=== PATIENT | male | born 1995 | race Caucasian/White ===

== ENCOUNTER 2020-01-18 00:34 | Emergency (ER) | payer OTHER ==
[~2020-01-18] VITALS: Ht 175.3 cm; Wt 72.9 kg
[2020-01-18 00:40] VITALS: BP 147/88
[2020-01-18] MEDS ORDERED: cefTRIAXone SODIUM 1 GM VIAL ONE (00:59)
--- NOTE | 2020-01-18 00:59 | PHYS DOC ---
General Adult HPI: HPI: "I was correcting my dog Josue.. becaise he was trying to eat the left over... smoked steak.....I ginna hit him on the nose.. and I bent down to talk to him..and he snapped.. at my face.. and caught my lower lip..." Patient is a 24 year old male who presents with above hx and complaints of dog bite to face. Pt has had the dog for 2 months. Dog is a [employer], originally transferred from [facility] to [facility]. Dog was adopted from the [facility]. No history on the animal. Dog is up-to-date with vaccinations. Primarily a inside dog. Has not exhibited any abnormal aggressive behaviors. Dog was somewhat agitated by multiple visitors in the home tonight. Patient has bite odell on left lower cheek and a large 4 cm through and through laceration to the lower left lip with surrounding ecchymosis. Does have teeth abrasion to Lt side of face. Patient has obviously missing approximately 2 cm of tissue to lower lip. Wound is gaping open. Discussed risks of closure with patient extensively and risk of increased infection. Elected to close laceration due to the marked deformity to face in spite of infection risk. Patient is normally healthy. No recent travel outside [facility]. No history of immunosuppression. [place] police dept[employer] notified. Review of Systems: Review of Systems: Constitutional: Denies fever or chills Eyes: Denies change in visual acuity HENT: Denies nasal congestion or sore throat. Dog bite to face Respiratory: Denies cough or shortness of breath Cardiovascular: Denies chest pain or edema GI: Denies abdominal pain, nausea, vomiting, bloody stools or diarrhea : Denies dysuria Musculoskeletal: Denies back pain or joint pain Integument: Denies rash Neurologic: Denies headache, focal weakness or sensory changes Endocrine: Denies polyuria or polydipsia Lymphatic: Denies swollen glands Psychiatric: Denies depression or anxiety Heart Score: Risk Factors: Risk Factors: DM, Current or recent (<one month) smoker, HTN, HLP, family history of CAD, obesity. Risk Scores: Score 0 - 3: 2.5% MACE over next 6 weeks - Discharge Home Score 4 - 6: 20.3% MACE over next 6 weeks - Admit for Clinical Observation Score 7 - 10: 72.7% MACE over next 6 weeks - Early Invasive Strategies Family History: Family History: Noncontributory Current Medications: Current Meds: See nursing for home meds Allergies: Allergies: No known drug allergies Physical Exam: PE: Constitutional: Well developed, well nourished, moderate acute distress, non- toxic appearance. [] HENT: Normocephalic, atraumatic, bilateral external ears normal, oropharynx moist, no oral exudates, nose normal. Gaping 4 cm through and through laceration lower left lip and left cheek teeth abrasions Eyes: PERRLA, EOMI, conjunctiva normal, no discharge. [] Neck: Normal range of motion, no tenderness, supple, no stridor. [] Cardiovascular:Heart rate regular rhythm, no murmur [] Lungs & Thorax: Bilateral breath sounds clear to auscultation [] Abdomen: Bowel sounds normal, soft, no tenderness, no masses, no pulsatile masses. [] Skin: Warm, dry, no erythema, no rash. [] Tattoos Back: No tenderness, no CVA tenderness. [] Extremities: No tenderness, no cyanosis, no clubbing, ROM intact, no edema. [] Old scar left shoulder Neurologic: Alert and oriented X 3, normal motor function, normal sensory function, no focal deficits noted. [] Psychologic: Affect normal, judgement normal, mood normal. [] EKG: EKG: [] Radiology/Procedures: Radiology/Procedures: [] Course & Med Decision Making: Course & Med Decision Making Pertinent Labs and Imaging studies reviewed. (See chart for details) Wound care-laceration cleaned with Betadine injected edge of laceration with lidocaine. I cleaned the laceration with Betadine irrigated with normal saline. Limited closure to the laceration with 4x simple 6-0 Prolene sutures and 4x Vicryl 6-0 internal mucosa sutures. Patient informed there would be a scar with malalignment of lip edges. . Consider plastic surgery revision once contr action of scar completed. Take Augmentin 875 twice a day. Dog should be confined to the next 10 days. If dog develop signs of rabies must complete your rabies prophylaxis. Take Tylenol and ibuprofen for pain. Monitor closely for infection. Follow-up primary care. Prolene sutures should be removed in 5 days. Return if any concerns. Impression: 1. Dog Bite 2. 4 cm Laceration through and through to lower lip. (Missing tissue) [] Dragon Disclaimer: Dragon Disclaimer: This electronic medical record was generated, in whole or in part, using a voice recognition dictation system. Departure Departure: Disposition: HOME/RESIDENCE PRIOR TO ADM Condition: STABLE Referrals: GENTRY MOSS (PCP) Scripts Amoxicillin/Potassium Clav (AUGMENTIN 875-125 TABLET) 1 Each Tablet 1 TAB PO BID for dog bite for 10 Days, #20 TAB 0 Refills Prov: CAMILLE CHAVARRIA MD 01/18/20 Justification of Admission: Justification of Admission: Justification of Admission Dx: No Dragon Disclaimer This chart was dictated in whole or in part using Voice Recognition software in a busy, high-work load, and often noisy Emergency Department environment. It may contain unintended and wholly unrecognized errors or omissions. CAMILLE CHAVARRIA MD Jan 18, 2020 00:59
[2020-01-18] MEDS ORDERED: DIPH,PERTUSS(ACELL),TET VAC/PF 0.5 ML SYRINGE. VAX IM ONE ×2 (01:00→01:30)
[2020-01-18] MEDS ORDERED: cefTRIAXone IM 1 GM VIAL IM ONE (01:15)
[2020-01-18] MEDS ORDERED: TETANUS AND DIPHTHERIA TOX/PF 0.5 ML VIAL. VAX IM ONE (01:15)
[2020-01-18] MEDS ORDERED: LIDOCAINE 2%/EPI 1:100,000 20 ML VIAL. ONE (01:24)
[2020-01-18] MEDS ORDERED: LIDOCAINE 1%/EPI 1:100,000 20 ML VIAL. ONE (01:24)
[2020-01-18] MEDS ORDERED: LIDOCAINE 1% Multi-Dose 20 ML VIAL. ONE (01:25)
[2020-01-18] MEDS ORDERED: LIDOCAINE 2% 20 ML VIAL. IJ ONE (01:30)
[2020-01-18] MEDS ORDERED: AMOX1TAB61 PO (02:52)
== END 2020-01-18 03:13 | disposition home or self-care (01) ==
LOC: ER 00:34
DX: S01.511A Laceration without foreign body of lip, initial encounter (principal); S01.412A Laceration without foreign body of left cheek and temporomandibular area, initial encounter; W54.0XXA Bitten by dog, initial encounter; Y93.89 Activity, other specified; Y92.89 Other specified places as the place of occurrence of the external cause; Y99.8 Other external cause status
CPT/HCPCS: 12013; 90471; 90472; 90714; 90715; 96372; 99284; J0696; 99291-25